=== PATIENT | male | born 1950 | race Caucasian/White ===

== ENCOUNTER 2018-03-19 15:01 | Inpatient (IN) | payer MEDICARE, OTHER, SELFPAY ==
[2018-03-19 15:03] VITALS: BP 163/92; PULSE 104; RESP 18; TEMP 37.3; O2SAT 98; BMI 29.9
--- NOTE | 2018-03-19 15:22 | CT_ITS ---
CT/Abdomen/Pelvis without Cont IMPRESSION: Stranding adjacent to the body and tail of the pancreas which likely represents acute pancreatitis. Correlation with laboratory lipase value is recommended. No bowel obstruction or inflammation. Normal appendix. Diverticulosis. No urinary calculi. No hydronephrosis. Fatty liver. Electronically Signed: Anthony Barillas, at 16:01 EDT Tel , Service support ,
--- NOTE | 2018-03-19 15:23 | ED.VISSUMM ---
- ER Visit Summary Date of Service: 03/19/18 Chief Complaint: Abdominal pain History of Present Illness: The patient is a 67 M presenting with bilateral lower abdominal pain that started gradually yesterday evening while he was at a baseball game in [place]. He feels nauseated but has not vomited. There is no radiation of the pain. No upper abdominal pain. No chest pain or shortness of breath. No flank pain or back pain. No hematuria. He denies previous similar symptoms. No known history of diverticulitis and no previous surgical history aside from a remote prostatectomy. Physical Examination: Vitals are within normal limits. He is in mild distress due to pain. Mucous membranes are dry. Neck is supple. Heart tones are regular and without murmur. Lungs are clear bilaterally. Abdomen reveals tenderness in both the right and left lower quadrant but no rebound or guarding. The overlying skin looks normal. Test Results: He has a slight leukocytosis. Lipase is greater than [address] scan reveals acute pancreatitis Emergency Department Course and Treatment: He was given IV fluids, morphine, and Zofran. Plan is to admit to the hospital. Treatment Plan: Admission for IV fluids and pain control Disposition: Admission Impression: Initial encounter acute pancreatitis This note was generated with [employer] dictation software. It may contain incorrect words, spelling, and punctuation that were not noted in review of the chart prior to signing ED Disposition - Plan for ED Patient: Chief Complaint: Abd Pain Referrals: [facility] Doctor,Out of [Primary Care Provider] -
[2018-03-19] MEDS: 0.9% Normal Saline 1,000 ML 1000 ML IV (15:41)
[2018-03-19] MEDS: Ondansetron 4 MG/2 ML Vial IV (15:43)
[2018-03-19 15:44] LABS: Bacteria 0 SEEN /hpf (None Seen); Mucous, Urine 0 SEEN /hpf (<or=2+); Squamous Epithelial Cells - UA 0 SEEN /hpf (0-5); White Blood Cells 0 SEEN /hpf (0-5)
[2018-03-19 15:52] LABS: Absolute Neutrophil Count 10.7 X10^3/uL (2.0-7.7); Basophil# 0.02 X10^3/uL; Basophil% 0.2 % (0-1); Color, Urine Yellow (Yellow); Eosinophil# 0.03 X10^3/uL; Eosinophils% 0.2 % (0-5); Glucose, Dipstick Normal (Normal); Hematocrit 45.1 % (40-54); Hemoglobin 14.8 g/dl (13.0-16.5); Ketone-Dipstick Negative (Negative); Leukocyte Esterase-Dipstick 25 /ul (Negative); Lymphocyte % 7.1 % (19-41); Mean Corp Hgb Conc 32.8 g/gl (32-36); Mean Corpuscular Volume 91.3 fL (80-94); Mean Platelet Vol. 11.1 fl (6.2-12.0); Monocyte% 8.6 % (0-10); Neutrophil # 10.65 X10^3/uL (2.7-7.7); Neutrophil % 83.7 % (47-70); Nitrite-Dipstick Negative (Negative); Occult Blood-Urine 10 /ul (Negative); Platelet Count 191 K/mm3 (150-450); Protein-Dipstick 15 mg/dl (Negative); RBC Distribution Width CV 13.7 % (11.6-14.6); RBC Distribution Width SD 45.7 fl (35.1-43.9); Red Blood Count 4.94 M/mm3 (4.6-6.2); Specific Gravity, Urine 1.015 (1.002-1.030); Urine Bilirubin Dipstick Negative (Negative); Urine Clarity Clear (Clear); Urine Urobilinogen 1 mg/dl (Normal); White Blood Count 12.7 K/mm3 (4.4-11.0)
[2018-03-19 15:55] LABS: POSITIVE COUNT NO; POSITIVE DIFFERENTIAL NO; POSITIVE MORPHOLOGY NO
[2018-03-19] MEDS: Morphine 4 MG/ML Syringe IV (16:01)
[2018-03-19 16:06] LABS: Red Blood Cells-Urine 0-5 SEEN /hpf (0-5)
[2018-03-19 16:13] LABS: AST(SGOT) 25 U/L (15-37); Alanine Aminotransfer ALT/SGPT 38 U/L (16-61); Albumin, Serum 4.3 g/dL (3.2-5.0); Alkaline Phosphatase 81 U/L (45-117); Anion Gap 6 (5-15); BUN 23 mg/dL (7-18); BUN/Creat Ratio 21.5 RATIO (10-20); Bilirubin, Direct 0.29 mg/dL (0.00-0.30); Calcium,Total 9.2 mg/dL (8.5-10.1); Chloride 101 mmol/L (98-107); Creatinine, Serum 1.07 mg/dL (0.70-1.30); EST Glomerular Filtration Rate 73 mL/min (>60); Est Glom Filt Rate - Afr Amer 88 mL/min (>60); Estimated Creatinine Clearance 64.81 ml/min; Glucose 142 mg/dL (74-106); Lipase 1824 U/L (73-393); Potassium 3.9 mmol/L (3.5-5.1); Protein, Total 8.3 g/dL (6.4-8.2); Sodium Level 137 mmol/L (136-145)
[2018-03-19 16:34] VITALS: BP 163/85; PULSE 82; RESP 16; O2SAT 98
--- NOTE | 2018-03-19 16:36 | PCM.HP.STD ---
Problem List (1) Acute pancreatitis Status: Acute (2) Diabetes mellitus Status: Chronic Qualifiers: Diabetes mellitus type: type 2 (3) Essential (primary) hypertension Status: Chronic (4) Hypothyroidism Status: Chronic (5) Dyslipidemia Status: Chronic History of Present Illness Date of Admission: 03/19/18 Chief Complaint: Abdominal discomfort The patient is a 67 year old M past medical history significant for hypertension, dyslipidemia who presents with abdominal discomfort. Patient symptoms started a day prior to him being admitted was probably from [place] through his back to used to. Patient did describe his abdominal discomfort as a band radiating to his back. He had some nausea but denied any vomiting. Patient upon further questioning denied any chronic use of alcohol. He had apparently been started on HCTZ a week prior to his admission. In view of the progressive nature of his symptoms patient presented to the emergency department where imaging studies obtained in the ED did confirm the presence of pancreatitis. He also had an elevated lipase levels. Patient was admitted to regular nursing floor for subsequent management. Past Medical History Past Medical History (Chronic Problems): Chronic Problems Diabetes mellitus (Chronic) Essential (primary) hypertension (Chronic) Hypothyroidism (Chronic) Dyslipidemia (Chronic) Allergies latex Allergy (Verified 03/19/18 15:02) Rash Home Medications: Ambulatory Orders Medication Instructions Recorded Bupropion HCl [Bupropion Xl] 300 mg PO QHS 03/19/18 Cholecalciferol (Vitamin D3) 5,000 unit PO QODAY 03/19/18 [Vitamin D3] Levothyroxine [Synthroid] 100 mcg PO DAILY 03/19/18 Losartan/Hydrochlorothiazide 1 tab PO DAILY 03/19/18 [Losartan-Hctz 100-25 mg Tab] Metformin HCl [Glucophage] 1 tab PO DAILY 03/19/18 Simvastatin [Zocor] 1 tab PO DAILY 03/19/18 buPROPion SR [Wellbutrin Sr] 100 mg PO DAILY 03/19/18 Smoking Status: Former smoker - *Family History Maternal History Items: No pertinent history - of old age Paternal History Items: No pertinent history - of old age Review of Systems Constitutional: Denies: Anorexia, Chills, Fever, Night Sweats, Weight Change HEENT: Denies: Head Aches, Sinus Congestion, Sinus Drainage Cardiovascular: Denies: Chest Pain, Orthopnea, Palpitations, Paroxysmal Noc. Dyspnea Respiratory: Denies: Cough, Shortness of breath at rest, Shortness of breath upon exertion, Sputum production Gastrointestinal: Reports: Abdominal Pain. Denies: Hematemesis, Hematochezia, Nausea, Melena, Vomiting Genitourinary: Denies: Dysuria, Frequency, Hematuria, Urgency Musculoskeletal: Denies: Joint Pain, Joint Tenderness Skin: Denies: Rash Neurological: Denies: Focal weakness, Numbness, Tingling Psychiatric: Denies: Homicidal Ideations, Suicidal Ideations Hematologic/ Lymphatic: Denies: Easy Bruising, Easy Bleeding VTE Information - Inpt Only VTE Present on Admission: No VTE Mechan Device Prophylaxis: Knee High VEGA Hose VTE Pharm Prophylaxis ordered?: Yes Patient Problems: Active and Suspected Problems Acute pancreatitis (Acute) Objective: GENERAL: cooperative and in no apparent distress. HEENT: Clear conjunctiva, moist oral mucosa NECK; supple, normal thyroid, no distended JVD. CHEST: Clear to auscultation bilaterally, HEART: Regular S1 S2, no audible murmurs ABDOMEN: soft, epigastric tenderness RECTAL: deferred EXTREMITIES: No edema, no clubbing, no cyanosis. MANAGER REGISTRATION: Awake; no lateralizing signs. SKIN: No Rash - Physical Exam Vital Signs Temp Pulse Resp BP Pulse Ox 99.1 F 104 H 18 163/92 H 98 03/19/18 15:03 03/19/18 15:03 03/19/18 15:03 03/19/18 15:03 03/19/18 15:03 Oxygen Delivery Method Room Air Weight: 89.3 kg Body Mass Index (BMI) 29.9 Laboratory Tests Past 24 Hrs 03/19/18 03/19/18 03/19/18 15:41 15:41 15:41 WBC 12.7 H RBC 4.94 Hgb 14.8 Hct 45.1 MCV 91.3 MCH 30.0 MCHC 32.8 RDW 13.7 RDW Differential 45.7 H Plt Count 191 MPV 11.1 Immature Gran % (Auto) 0.200 Neut % (Auto) 83.7 H Lymph % (Auto) 7.1 L Tift % (Auto) 8.6 Eos % (Auto) 0.2 Baso % (Auto) 0.2 Absolute Neuts (auto) 10.7 H Absolute Lymphs (auto) 0.90 Total Counted Not Reportable Sodium 137 Potassium 3.9 Chloride 101 Carbon Dioxide 30.0 Anion Gap 6 BUN 23 H Creatinine 1.07 Estim Creat Clear Calc 64.81 Est GFR (MDRD) Af Amer 88 Est GFR (MDRD) Non-Af 73 BUN/Creatinine Ratio 21.5 H Glucose 142 H Calcium 9.2 Total Bilirubin 1.30 H Direct Bilirubin 0.29 AST 25 ALT 38 Alkaline Phosphatase 81 Total Protein 8.3 H Albumin 4.3 Globulin 4.0 Lipase 1824 H Urine Color Yellow Urine Clarity Clear Urine pH 6.0 Ur Specific [place] 1.015 Urine Protein 15 H Urine Glucose (UA) Normal Urine Ketones Negative Urine Occult Blood 10 H Urine Nitrite Negative Urine Bilirubin Negative Urine Urobilinogen 1 H Ur Leukocyte Esterase 25 H Urine RBC 0-5 SEEN Urine WBC 0 SEEN Ur Squamous Epith Cells 0 SEEN Urine Bacteria 0 SEEN Urine Mucus 0 SEEN Assessment/Plan All Active Problems Acute pancreatitis (Acute) Patient is a 67-year-old gentleman presenting with abdominal pain 1. Acute pancreatitis suspected to be secondary to drug-induced (HCTZ) HCTZ that suspected offending medication was discontinued on admission. Patient has been admitted to regular nursing floor where he is being managed conservatively with bowel rest, H2 blockers, pain medication as well as antinausea medication. Plan is for patient to be initiated on clear liquids once his pain improves 2. Essential hypertension patient blood pressure relatively controlled did continue home medication except for HCTZ due to above reasons 3. Dyslipidemia-patient is on statin therapy, continued at home dose 4. Hypothyroidism-patient is on levothyroxine home dose continued 5. Diabetes mellitus type 2 apparently prediabetic the patient is on metformin 6. DVT prophylaxis SC Lovenox Impressions Abdomen/Pelvis CT 03/19/18 15:22 IMPRESSION: Stranding adjacent to the body and tail of the pancreas which likely represents acute pancreatitis. Correlation with laboratory lipase value is recommended. No bowel obstruction or inflammation. Normal appendix. Diverticulosis. No urinary calculi. No hydronephrosis. Fatty liver. Electronically Signed: Anthony Barillas, at 16:01 EDT Tel , Service support , Code Visit Inpatient E&M: 32185 Subs Hosp L3
[2018-03-19 17:20] VITALS: BMI 29.9
[2018-03-19 17:27] VITALS: BP 151/71; PULSE 78; RESP 18; TEMP 36.6; O2SAT 97
[2018-03-19] MEDS: Morphine 2 MG/ML Syringe IV ×2 (18:01→21:34)
[2018-03-19] MEDS: oxyCODONE 5 MG Tablet PO (20:17)
[2018-03-19] MEDS: Famotidine 20 MG Tablet PO (20:18)
[2018-03-19] MEDS: guaiFENesin 1,200 MG Tablet 1200 MG PO (20:19)
[2018-03-19 22:15] VITALS: BP 160/85; PULSE 90; RESP 18; TEMP 37.5; O2SAT 94
[2018-03-20] MEDS: Morphine 2 MG/ML Syringe IV ×6 (00:23→19:36)
[2018-03-20] MEDS: Ondansetron 4 MG/2 ML Vial IV ×2 (02:46→19:36)
[2018-03-20 04:06] VITALS: BP 170/90; PULSE 95; RESP 18; TEMP 37.4; O2SAT 99
[2018-03-20] MEDS: Losartan Potassium 100 MG Tablet PO (05:27)
[2018-03-20] MEDS: Levothyroxine 100 MCG Tablet PO (05:27)
[2018-03-20 06:33] LABS: Hematocrit 41.5 % (40-54); Mean Corp Hgb Conc 33.7 g/gl (32-36); Mean Corpuscular Hgb 30.4 pg (27.0-32.0); Mean Corpuscular Volume 90.2 fL (80-94); Mean Platelet Vol. 11.5 fl (6.2-12.0); Platelet Count 175 K/mm3 (150-450); RBC Distribution Width CV 13.5 % (11.6-14.6); RBC Distribution Width SD 44.4 fl (35.1-43.9); White Blood Count 15.2 K/mm3 (4.4-11.0)
[2018-03-20 06:43] LABS: Anion Gap 6 (5-15); BUN 15 mg/dL (7-18); BUN/Creat Ratio 16.6 RATIO (10-20); Calcium,Total 8.4 mg/dL (8.5-10.1); Chloride 99 mmol/L (98-107); EST Glomerular Filtration Rate 89 mL/min (>60); Est Glom Filt Rate - Afr Amer 107 mL/min (>60); Estimated Creatinine Clearance 77.06 ml/min; Glucose 149 mg/dL (74-106); Lipase 850 U/L (73-393); Sodium Level 135 mmol/L (136-145)
[2018-03-20 06:44] LABS: Scan Indicated on CBC? Y/N NO
--- NOTE | 2018-03-20 07:23 | PCM.PN.HOSP ---
Patient Problems: Active and Suspected Problems Acute pancreatitis (Acute) Subjective: Patient's has blood pressure markedly elevated ; he also did have bouts of emesis and is still complaining of abdominal discomfort. Added scheduled amlodipine as well as as needed hydralazine to his antihypertensive regimen Objective: GENERAL: cooperative and in no apparent distress. HEENT: Clear conjunctiva, moist oral mucosa NECK; supple, normal thyroid, no distended JVD. CHEST: Clear to auscultation bilaterally, HEART: Regular S1 S2, no audible murmurs ABDOMEN: soft, epigastric tenderness RECTAL: deferred EXTREMITIES: No edema, no clubbing, no cyanosis. YOUTH CARE WORKER: Awake; no lateralizing signs. SKIN: No Rash Vitals/I&O's: Vital Signs Temp Pulse Resp BP Pulse Ox 99.3 F H 95 18 170/90 H 99 03/20/18 04:06 03/20/18 04:06 03/20/18 04:06 03/20/18 04:06 03/20/18 04:06 Oxygen Delivery Method Room Air Weight: 89.5 kg Body Mass Index (BMI) 29.9 Intake and Output for Last 24 Hours 03/18/18 03/19/18 03/20/18 23:59 23:59 23:59 Intake Total 1220 / 1220 Output Total 800 / 800 Balance 420 / 420 Laboratory Results 03/20/18 05:39: WBC 15.2 H, RBC 4.60, Hgb 14.0, Hct 41.5, MCV 90.2, MCH 30.4, MCHC 33.7, RDW 13.5, RDW Differential 44.4 H, Plt Count 175, MPV 11.5 03/20/18 05:39: Sodium 135 L, Potassium 4.0, Chloride 99, Carbon Dioxide 30.0, Anion Gap 6, BUN 15, Creatinine 0.90, Estim Creat Clear Calc 77.06, Est GFR (MDRD) Af Amer 107, Est GFR (MDRD) Non-Af 89, BUN/Creatinine Ratio 16.6, Glucose 149 H, Calcium 8.4 L, Lipase 850 H Current Medications Acetaminophen (Tylenol) 650 mg PO Q4H PRN PRN PRN Reason: FEVER Amlodipine Besylate (Norvasc) 10 mg PO DAILY [facility] Bupropion HCl (Wellbutrin Sr (100mg Tablets)) 100 mg PO DINNER [facility] Last Admin: 03/19/18 20:26 Dose: Not Given Bupropion HCl (Wellbutrin Xl) 300 mg PO DAILY [facility] Cholecalciferol (Vitamin D) 5,000 unit PO QODAY [facility] Famotidine (Pepcid) 20 mg PO BID [facility] Last Admin: 03/19/18 20:18 Dose: 20 mg Guaifenesin (Mucinex) 1,200 mg PO BID [facility] Last Admin: 03/19/18 20:19 Dose: 1,200 mg Hydralazine HCl (Apresoline Iv) 10 mg IV Q4H PRN PRN PRN Reason: for SBP > 150 Potassium Chloride/Dextrose/Sod Cl (Kcl 20meq In D5.45ns 1000ml) 1,000 mls @ 100 mls/hr IV .Q10H [facility] Last Admin: 03/20/18 03:32 Dose: 100 mls/hr Levothyroxine Sodium (Synthroid) 100 mcg PO DAILY@0600 [facility] Last Admin: 03/20/18 05:27 Dose: 100 mcg Losartan Potassium (Cozaar) 100 mg PO DAILY [facility] Last Admin: 03/20/18 05:27 Dose: 100 mg Magnesium Hydroxide (Milk Of Magnesia) 30 ml PO DAILY PRN PRN PRN Reason: Constipation Morphine Sulfate () 2 - 4 mg IV Q3H PRN PRN PRN Reason: Severe Pain (pain scale 6-10) Last Admin: 03/20/18 03:30 Dose: 4 mg Non-Formulary Medication (Simvastatin) 1 tab PO QHS [facility] Ondansetron HCl (Zofran) 4 mg IV Q8H PRN PRN PRN Reason: NAUSEA Last Admin: 03/20/18 02:46 Dose: 4 mg Oxycodone HCl (Oxyir) 5 mg PO Q4H PRN PRN PRN Reason: Moderate Pain (pain scale 4-5) Last Admin: 03/19/18 20:17 Dose: 5 mg Sodium Chloride () 5 - 30 ml IV UD PRN PRN Reason: SALINE FLUSH Zolpidem Tartrate (Ambien (Generic)) 5 mg PO QHS PRN PRN PRN Reason: SLEEP Zolpidem Tartrate (Ambien (Generic)) 5 mg PO QHS PRN PRN PRN Reason: INSOMNIA Medical Necessity - Tobacco Use Smoking Status: Never smoker Assessment/Plan All Active Problems Acute pancreatitis (Acute) Patient is a 67-year-old gentleman presenting with abdominal pain 1. Acute pancreatitis suspected to be secondary to drug-induced (HCTZ) HCTZ that suspected offending medication was discontinued on admission. Patient has been admitted to regular nursing floor where he is being managed conservatively with bowel rest, H2 blockers, pain medication as well as antinausea medication. Plan is for patient to be initiated on clear liquids once his pain improves 2. Essential hypertension patient blood pressure markedly elevated this a.m. HCTZ was held in view of above. Hydralazine and amlodipine added 3. Dyslipidemia-patient is on statin therapy, continued at home dose 4. Hypothyroidism-patient is on levothyroxine home dose continued 5. Diabetes mellitus type 2 apparently prediabetic the patient is on metformin 6. DVT prophylaxis SC Lovenox Impressions Abdomen/Pelvis CT 03/19/18 15:22 IMPRESSION: Stranding adjacent to the body and tail of the pancreas which likely represents acute pancreatitis. Correlation with laboratory lipase value is recommended. No bowel obstruction or inflammation. Normal appendix. Diverticulosis. No urinary calculi. No hydronephrosis. Fatty liver. Electronically Signed: Anthony Barillas, at 16:01 EDT Tel , Service support , Code Visit Inpatient E&M: 42111 Subs Hosp L3
[2018-03-20 08:06] VITALS: BP 160/74; PULSE 75; RESP 18; TEMP 36.8; O2SAT 94
[2018-03-20] MEDS: 0.9% NaCl Peripheral Flush Adult/Peds IV ×4 (08:14→19:36)
[2018-03-20] MEDS: amLODIPine 10 MG Tablet PO (12:12)
[2018-03-20] MEDS: Famotidine 20 MG Tablet PO ×2 (12:12→22:51)
[2018-03-20] MEDS: buPROPion (XL) 300 MG TABLET.XL PO (12:13)
[2018-03-20] MEDS: guaiFENesin 1,200 MG Tablet 1200 MG PO ×2 (12:13→22:51)
[2018-03-20 14:00] VITALS: BP 155/78; PULSE 84; RESP 18; TEMP 37; O2SAT 93
[2018-03-20] MEDS: buPROPion (SR) 100 MG TABLET.SA PO (15:42)
[2018-03-20 20:21] VITALS: BP 167/82; PULSE 89; RESP 16; TEMP 37.4; O2SAT 95
--- NOTE | 2018-03-20 20:30 | NUR.TO.PHY ---
SBP over 150 parameter for hydralazine. On shortage of hydralazine. Order from [facility] for labetalol for SBP over 170.
[2018-03-20 22:11] LABS: Bedside Glucose 140 mg/dL (70-110)
[2018-03-20] MEDS: Atorvastatin Calcium 20 MG Tablet PO (22:51)
[2018-03-20] MEDS: Zolpidem Tartrate 5 MG Tablet PO (22:51)
[2018-03-21 02:20] VITALS: BP 145/75; PULSE 92; RESP 18; TEMP 37.1; O2SAT 94
[2018-03-21] MEDS: 0.9% NaCl Peripheral Flush Adult/Peds IV (04:28)
[2018-03-21] MEDS: Levothyroxine 100 MCG Tablet PO (04:28)
[2018-03-21] MEDS: Morphine 2 MG/ML Syringe IV (04:28)
[2018-03-21 06:14] LABS: Hematocrit 40.2 % (40-54); Hemoglobin 13.6 g/dl (13.0-16.5); Mean Corp Hgb Conc 33.8 g/gl (32-36); Mean Corpuscular Hgb 30.4 pg (27.0-32.0); Mean Corpuscular Volume 89.7 fL (80-94); Mean Platelet Vol. 10.9 fl (6.2-12.0); Platelet Count 168 K/mm3 (150-450); RBC Distribution Width CV 13.1 % (11.6-14.6); RBC Distribution Width SD 42.8 fl (35.1-43.9); Red Blood Count 4.48 M/mm3 (4.6-6.2); White Blood Count 15.4 K/mm3 (4.4-11.0)
[2018-03-21 06:24] LABS: Scan Indicated on CBC? Y/N NO
[2018-03-21 09:58] VITALS: BP 175/95; PULSE 85; RESP 16; TEMP 36.7; O2SAT 95
[2018-03-21] MEDS: amLODIPine 10 MG Tablet PO (10:02)
[2018-03-21] MEDS: guaiFENesin 1,200 MG Tablet 1200 MG PO (10:02)
[2018-03-21] MEDS: Famotidine 20 MG Tablet PO (10:02)
[2018-03-21] MEDS: buPROPion (XL) 300 MG TABLET.XL PO (10:02)
[2018-03-21] MEDS: Losartan Potassium 100 MG Tablet PO (10:02)
--- NOTE | 2018-03-21 11:40 | PCM.PN.HOSP ---
Patient Problems: Active and Suspected Problems Acute pancreatitis (Acute) Subjective: feeling better and has minimal abdominal pain without nausea or vomiting Objective: General: Alert, Oriented x3, Cooperative, No apparent distress HEENT: Atraumatic, EOMI, Normocephalic Oral: Moist Mucosa Neck: Supple, No JVD Lungs: Clear to auscultation, Normal air movement, No rhonchi, No wheeze, No rales Cardiovascular: Regular rate, Regular Rhythm, Normal S1, Normal S2, No murmurs Abdomen: Soft, mildly tender, Non-Distended, No Hepato-splenomegaly Extremities: No edema, Capillary Refill Less than 3 Seconds Psych/Mental Status: Normal Affect, Appropriate Vitals/I&O's: Vital Signs Temp Pulse Resp BP Pulse Ox 98.0 F 85 16 175/95 H 95 03/21/18 09:58 03/21/18 09:58 03/21/18 09:58 03/21/18 09:58 03/21/18 09:58 Oxygen Delivery Method Room Air Weight: 197 lb 5.019 oz Body Mass Index (BMI) 29.9 Intake and Output for Last 24 Hours 03/19/18 03/20/18 03/21/18 23:59 23:59 23:59 Intake Total 3404 / 3404 731 / 731 Output Total 1550 / 1550 200 / 200 Balance 1854 / 1854 531 / 531 Laboratory Results 03/20/18 21:42: POC Glucose 140 H 03/21/18 05:55: WBC 15.4 H, RBC 4.48 L, Hgb 13.6, Hct 40.2, MCV 89.7, MCH 30.4, MCHC 33.8, RDW 13.1, RDW Differential 42.8, Plt Count 168, MPV 10.9 Current Medications Acetaminophen (Tylenol) 650 mg PO Q4H PRN PRN PRN Reason: FEVER Amlodipine Besylate (Norvasc) 10 mg PO DAILY [facility] Last Admin: 03/21/18 10:02 Dose: 10 mg Atorvastatin Calcium (Lipitor) 20 mg PO QHS [facility] Last Admin: 03/20/18 22:51 Dose: 20 mg Bupropion HCl (Wellbutrin Sr (100mg Tablets)) 100 mg PO DINNER [facility] Last Admin: 03/20/18 15:42 Dose: 100 mg Bupropion HCl (Wellbutrin Xl) 300 mg PO DAILY [facility] Last Admin: 03/21/18 10:02 Dose: 300 mg Cholecalciferol (Vitamin D) 5,000 unit PO QODAY [facility] Last Admin: 03/21/18 10:01 Dose: 5,000 unit Famotidine (Pepcid) 20 mg PO BID [facility] Last Admin: 03/21/18 10:02 Dose: 20 mg Guaifenesin (Mucinex) 1,200 mg PO BID [facility] Last Admin: 03/21/18 10:02 Dose: 1,200 mg Potassium Chloride/Dextrose/Sod Cl (Kcl 20meq In D5.45ns 1000ml) 1,000 mls @ 100 mls/hr IV .Q10H [facility] Last Admin: 03/21/18 01:41 Dose: 100 mls/hr Labetalol HCl (Trandate) 10 mg IV Q4H PRN PRN PRN Reason: SBP >170 Levothyroxine Sodium (Synthroid) 100 mcg PO DAILY@0600 [facility] Last Admin: 03/21/18 04:28 Dose: 100 mcg Losartan Potassium (Cozaar) 100 mg PO DAILY [facility] Last Admin: 03/21/18 10:02 Dose: 100 mg Magnesium Hydroxide (Milk Of Magnesia) 30 ml PO DAILY PRN PRN PRN Reason: Constipation Morphine Sulfate () 2 - 4 mg IV Q3H PRN PRN PRN Reason: Severe Pain (pain scale 6-10) Last Admin: 03/21/18 04:28 Dose: 2 mg Ondansetron HCl (Zofran) 4 mg IV Q8H PRN PRN PRN Reason: NAUSEA Last Admin: 03/20/18 19:36 Dose: 4 mg Oxycodone HCl (Oxyir) 5 mg PO Q4H PRN PRN PRN Reason: Moderate Pain (pain scale 4-5) Last Admin: 03/19/18 20:17 Dose: 5 mg Sodium Chloride () 5 - 30 ml IV UD PRN PRN Reason: SALINE FLUSH Last Admin: 03/21/18 04:28 Dose: 10 ml Zolpidem Tartrate (Ambien (Generic)) 5 mg PO QHS PRN PRN PRN Reason: SLEEP Last Admin: 03/20/18 22:51 Dose: 5 mg Zolpidem Tartrate (Ambien (Generic)) 5 mg PO QHS PRN PRN PRN Reason: INSOMNIA Medical Necessity - Tobacco Use Smoking Status: Never smoker Assessment/Plan All Active Problems Acute pancreatitis (Acute) 1. Acute pancreatitis/HTN/HLD - He does admit to being an alcoholic though he quit drinking 45 years ago and has not had a drink since - Will check triglycerides - Also he is on many medications that have been implicated including HCTZ, losartan, and simvastatin. - His HCTZ has been discontinued and he was started on norvasc because of his increase in BP. - Will discuss with him and his family about discontinuing his losartan and starting coreg - Will start a low fat diet for lunch today and monitor his condition - c/w IVF@100 2. DM2 - stable - on metformin at home and is considered pre-diabetic. 3. Hypothyroidism - stable - c/w home synthroid 4. Depression - Stable - c/w wellbutrin Code: FULL Diet: Low fat Code Visit Inpatient E&M: 88356 Subs Hosp L2
--- NOTE | 2018-03-21 11:55 | CASEMGMT ---
RN BALJIT Face to Face with patient for initial transition planning/care coordination assessment. RN BALJIT introduced self and role at [facility]. Patient lying in bed, alert and oriented. Patient willing to participate in assessment and is able to answer all questions appropriately. Care providers, pharmacy, and demographics verified. Patient lives with in [place], [place] in 4 story house. Patient states he has a cane a home. Patient states that kevine and his are dropping off their daughter's for college. Patient wishes to discharge home, denies need for home health at this time. Patient states he has no further needs or concerns at this time. CM to follow for discharge planning needs that may arise. Disposition Plan: Patient to discharge home with family support and follow-up plans in place.
[2018-03-21 12:58] LABS: Triglycerides 75 mg/dL
--- NOTE | 2018-03-21 14:39 | PCM.DC ---
- Discharge Diagnoses Current Active Problems: Current Active and Chronic Problems Diabetes mellitus (Chronic) Essential (primary) hypertension (Chronic) Hypothyroidism (Chronic) Dyslipidemia (Chronic) Acute pancreatitis (Acute) You will use the following diet at home:: Other - Low fat diet Your food should be the consistency of: Regular Your liquids should be the consistency of: Regular/Thin Discharge Activity: Return to Normal Activity Call your doctor if you observe: Fever of 101 or Higher, Dizziness, Fainting spells, Swelling in the ankles, Chest pain, Increased palpitations (irregular heartbeat), Uncontrolled pain Instructions: Controlling High Blood Pressure, Oral Medications for Type 2 Diabetes, Diabetes: Understanding Carbohydrates, Discharge Instructions for High Blood Pressure (Hypertension) Allergies/Adverse Reactions: Allergies latex Allergy (Verified 03/19/18 15:02) Rash Medications to take at Discharge Bupropion HCl [Bupropion Xl] 300 mg PO DAILY 03/19/18 Cholecalciferol (Vitamin D3) [Vitamin D3] 5,000 unit PO QODAY 03/19/18 Levothyroxine [Synthroid] 100 mcg PO DAILY 03/19/18 Metformin HCl [Glucophage] 1 tab PO BID 03/19/18 buPROPion SR [Wellbutrin Sr] 100 mg PO DINNER 03/19/18 Carvedilol [Coreg (Beta Messi)] 3.125 mg PO BID #60 tab 03/21/18 The following prescriptions were given: Carvedilol [Coreg (Beta Messi)] 3.125 mg PO BID #60 tab Primary Care Physician: Galindo Almazan,Out of [Primary Care Provider] - Please follow up with your Primary Care Physician in: in 3-5 days Test Results: Test results from this visit will be discussed in further detail at your follow-up appointment, if applicable.
[2018-03-21 14:42] VITALS: BP 156/92; PULSE 90; RESP 16; TEMP 36.6; O2SAT 98
--- NOTE | 2018-03-21 14:53 | DS.PCM_ITS ---
Discharge Date and Diagnosis - Problem List Patient Problems: Active and Suspected Problems Acute pancreatitis (Acute) Date of Admission: 03/19/18 Date of Discharge: 03/21/18 - Primary Discharge Diagnosis Active and Suspected Problems Acute pancreatitis (Acute) - Secondary Discharge Diagnosis Chronic Problems Diabetes mellitus (Chronic) Essential (primary) hypertension (Chronic) Hypothyroidism (Chronic) Dyslipidemia (Chronic) Hospital Course and Treatment Imaging Results: CT abdomen: IMPRESSION: Stranding adjacent to the body and tail of the pancreas which likely represents acute pancreatitis. Correlation with laboratory lipase value is recommended. No bowel obstruction or inflammation. Normal appendix. Diverticulosis. No urinary calculi. No hydronephrosis. Fatty liver. RUQ U/S: IMPRESSION: Diffuse fatty infiltration of the liver, no discrete lesion. Sonographically normal gallbladder and pancreas, though the pancreas is not well visualized. Consults: None Operations: None Procedures: None Summary of Care Provided: HPI: The patient is a 67 year old M past medical history significant for hypertension, dyslipidemia who presents with abdominal discomfort. Patient symptoms started a day prior to him being admitted was probably from [place] through his back to used to. Patient did describe his abdominal discomfort as a band radiating to his back. He had some nausea but denied any vomiting. Patient upon further questioning denied any chronic use of alcohol. He had apparently been started on HCTZ a week prior to his admission. In view of the progressive nature of his symptoms patient presented to the emergency department where imaging studies obtained in the ED did confirm the presence of pancreatitis. He also had an elevated lipase levels. Patient was admitted to regular nursing floor for subsequent management. Hospital Course: 1. Acute Pancreatitis/HTN/HLD - Here to help moving his daughter into college when he developed pancreatitis with a lipase>1100. His lipase has trended downward and his pain improved so he was started on a low fat diet for lunch today which he tolerated well. Denies any significant pain on discharge. In review, his triglycerides are normal and CT and US of his gallbladder do not reveal a stone. He is on multiple class I/II drugs to cause pancreatitis including simvastatin, losartan which were discontinued and he was started on Coreg and norvasc to control his blood pressure better. I also discontinued his HCTZ as it is known to cause pancreatitis as well. Discharge Diet: - - Low fat Discharge Activity: Return to Normal Activity Call your doctor if you observe: Fever of 101 or Higher, Dizziness, Fainting spells, Swelling in the ankles, Chest pain, Increased palpitations (irregular heartbeat), Uncontrolled pain Home Medications: Medications to take at Discharge Bupropion HCl [Bupropion Xl] 300 mg PO DAILY 03/19/18 Cholecalciferol (Vitamin D3) [Vitamin D3] 5,000 unit PO QODAY 03/19/18 Levothyroxine [Synthroid] 100 mcg PO DAILY 03/19/18 Metformin HCl [Glucophage] 1 tab PO BID 03/19/18 buPROPion SR [Wellbutrin Sr] 100 mg PO DINNER 03/19/18 Carvedilol [Coreg (Beta Messi)] 3.125 mg PO BID #60 tab 03/21/18 Following Prescrptions Were Given to Patient: Carvedilol [Coreg (Beta Messi)] 3.125 mg PO BID #60 tab Primary Care Physician: Galindo Almazan,Out of [Primary Care Provider] - Please follow up with your Primary Care Physician in: in 3-5 days Patient Instructions: Controlling High Blood Pressure, Oral Medications for Type 2 Diabetes, Diabetes: Understanding Carbohydrates, Discharge Instructions for High Blood Pressure (Hypertension) Disposition: Home Minutes spent on discharge:: 40 Patient Condition:: Good Medical Necessity - Tobacco Use Smoking Status: Never smoker Meaningful Use Info Meaningful Use Diagnoses (Choose all that apply): None applicable
[2018-03-21 15:00] VITALS: BP 154/88; PULSE 92; RESP 16; TEMP 36.6; O2SAT 97
[2018-03-21] MEDS: Carvedilol 3.125 MG TABLET PO (15:21)
== END 2018-03-21 17:39 | disposition home or self-care (01) | DRG 440 ==
LOC: ED 16:26 → MS3 17:13
PROVIDERS: Admitting Provider Internal Medicine; Emergency Provider Emergency Medicine; Visit Provider Family Medicine
DX: K85.90 Acute pancreatitis without necrosis or infection, unspecified (principal); I10 Essential (primary) hypertension; E78.5 Hyperlipidemia, unspecified; E03.9 Hypothyroidism, unspecified; Z79.84 Long term (current) use of oral hypoglycemic drugs; F32.9 Major depressive disorder, single episode, unspecified; Z87.891 Personal history of nicotine dependence; E11.9 Type 2 diabetes mellitus without complications
CPT/HCPCS: 36415; 74176; 76705; 80048; 80076; 81001; 82962; 83690; 84478; 85025; 85027; 97802; 99282; J7030; A4216; J2405